=== PATIENT | female | born 1985 | race African-American/Black ===

== ENCOUNTER 2019-03-31 22:34 | Emergency (ER) | payer MEDICAID ==
[~2019-03-31] VITALS: Ht 160 cm; Wt 103.2 kg
--- NOTE | 2019-03-31 23:04 | PHYS DOC ---
Adult General Chief Complaint Chief Complaint: ABDOMINAL PAIN HPI HPI Patient is a 34-year-old female who presents with complaint of generalized abdominal pain that started approximately an hour prior to arrival to the em ergency room. Patient states that initially the pain was approximately a 10 out of 10 but states that currently is a 5 out of 10. She denies having had any nausea or vomiting but does admit some diarrhea today. She denies any fever. She denies any radiation of the pain. She is not aware of any exacerbating or alleviating factors.[] Review of Systems Review of Systems Constitutional: Denies fever or chills [] Respiratory: Denies cough or shortness of breath [] Cardiovascular: No additional information not addressed in HPI [] GI: Complains of abdominal pain without nausea or vomiting. Admits to diarrhea [] Integument: Denies rash or skin lesions [] Neurologic: Denies headache, focal weakness or sensory changes [] All other systems were reviewed and found to be within normal limits, except as documented in this note. Current Medications Current Medications Current Medications Medications (Trade) Dose Ordered Sig/Rey Start Time Stop Time Status Last Admin Dose Admin Ondansetron HCl (Zofran) 4 mg 1X ONCE 03/31/19 23:30 03/31/19 23:31 DC 03/31/19 23:40 4 MG Sodium Chloride 1,000 ml @ 1,000 mls/hr Q1H 03/31/19 23:30 04/01/19 00:29 03/31/19 23:39 1,000 MLS/HR Allergies Allergies Allergies Coded Allergies Type Severity Reaction Last Updated Verified No Known Drug Allergies 03/31/19 No Physical Exam Physical Exam Constitutional: Well developed, well nourished, no acute distress, non-toxic appearance. [] HENT: Normocephalic, atraumatic, bilateral external ears normal, oropharynx moist, no oral exudates, nose normal. [] Eyes: PERRLA, EOMI, conjunctiva normal, no discharge. [] Neck: Normal range of motion, no tenderness, supple, no stridor. [] Cardiovascular: Regular rate and rhythm[] Lungs & Thorax: Bilateral breath sounds clear to auscultation [] Abdomen: Bowel sounds normal, soft, no tenderness in all 4 quadrants. [] Skin: Warm, dry, no erythema, no rash. [] Extremities: No tenderness, no cyanosis, no clubbing, ROM intact. [] Neurologic: Alert and oriented X 3, no focal deficits noted. [] Current Patient Data Vital Signs Vital Signs Date Time Temp Pulse Resp B/P (MAP) Pulse Ox O2 Delivery O2 Flow Rate FiO2 03/31/19 23:50 72 20 138/81 (100) 96 03/31/19 23:20 Room Air 03/31/19 22:45 97.9 97.9 Lab Values Laboratory Tests Test 03/31/19 22:59 03/31/19 23:05 Urine Collection Type Unknown Urine Color Yellow Urine Clarity Clear Urine pH 7.0 Urine Specific [place] 1.010 Urine Protein Negative mg/dL (NEG-TRACE) Urine Glucose (UA) Negative mg/dL (NEG) Urine Ketones (Stick) Negative mg/dL (NEG) Urine Blood Negative (NEG) Urine Nitrite Negative (NEG) Urine Bilirubin Negative (NEG) Urine Urobilinogen Dipstick 0.2 mg/dL (0.2 mg/dL) Urine Leukocyte Esterase Negative (NEG) Urine RBC Occ /HPF (0-2) Urine WBC Occ /HPF (0-4) Urine Squamous Epithelial Cells Few /LPF Urine Bacteria 0 /HPF (0-FEW) White Blood Count 3.8 x10^3/uL (4.0-11.0) L Red Blood Count 4.68 x10^6/uL (3.50-5.40) Hemoglobin 13.5 g/dL (12.0-15.5) Hematocrit 39.8 % (36.0-47.0) Mean Corpuscular Volume 85 fL (79-100) Mean Corpuscular Hemoglobin 29 pg (25-35) Mean Corpuscular Hemoglobin Concent 34 g/dL (31-37) Red Cell Distribution Width 14.7 % (11.5-14.5) H Platelet Count 197 x10^3/uL (140-400) Neutrophils (%) (Auto) 42 % (31-73) Lymphocytes (%) (Auto) 46 % (24-48) Monocytes (%) (Auto) 7 % (0-9) Eosinophils (%) (Auto) 5 % (0-3) H Basophils (%) (Auto) 1 % (0-3) Neutrophils # (Auto) 1.6 x10^3/uL (1.8-7.7) L Lymphocytes # (Auto) 1.8 x10^3/uL (1.0-4.8) Monocytes # (Auto) 0.3 x10^3/uL (0.0-1.1) Eosinophils # (Auto) 0.2 x10^3/uL (0.0-0.7) Basophils # (Auto) 0.0 x10^3/uL (0.0-0.2) Sodium Level 144 mmol/L (136-145) Potassium Level 3.3 mmol/L (3.5-5.1) L Chloride Level 106 mmol/L (98-107) Carbon Dioxide Level 27 mmol/L (21-32) Anion Gap 11 (6-14) Blood Urea Nitrogen 5 mg/dL (7-20) L Creatinine 1.0 mg/dL (0.6-1.0) Estimated GFR (Cockcroft-Gault) 63.1 BUN/Creatinine Ratio 5 (6-20) L Glucose Level 100 mg/dL (70-99) H Calcium Level 9.1 mg/dL (8.5-10.1) Total Bilirubin 0.5 mg/dL (0.2-1.0) Aspartate Amino Transferase (AST) 30 U/L (15-37) Alanine Aminotransferase (ALT) 47 U/L (14-59) Alkaline Phosphatase 45 U/L (46-116) L Total Protein 7.0 g/dL (6.4-8.2) Albumin 3.7 g/dL (3.4-5.0) Albumin/Globulin Ratio 1.1 (1.0-1.7) Lipase 121 U/L (73-393) Laboratory Tests 03/31/19 23:05 Laboratory Tests 03/31/19 23:05 EKG EKG [] Radiology/Procedures Radiology/Procedures [] Impressions: PROCEDURE: ACUTE ABDOMEN SERIES Three-view acute abdominal series. HISTORY: Abdominal pain 3 views were taken for an acute abdominal series. Lungs are clear. Heart is normal in size. There is no effusion. There is no free air on the upright abdomen. There are no abnormal air-fluid levels. There is mild stool in the right colon and rectum. There is no small bowel obstruction. There are no abnormal calcifications. IMPRESSION: 1. No acute chest disease. 2. Mild stool noted in the colon. 3. No bowel obstruction or other acute finding. Electronically signed by: Berhane Sidhu MD (03/31/2019 11:59 PM) [facility] Course & Med Decision Making Course & Med Decision Making Pertinent Labs and Imaging studies reviewed. (See chart for details) [] Dragon Disclaimer Dragon Disclaimer This electronic medical record was generated, in whole or in part, using a voice recognition dictation system. Departure Departure Impression: Primary Impression: Abdominal pain Disposition: HOME, SELF-CARE Condition: STABLE Patient Instructions: Abdominal Pain Scripts Ondansetron (ONDANSETRON ODT) 4 Mg Tab.rapdis 1 TAB PO PRN Q6-8HRS PRN for NAUSEA, #15 TAB Prov: APARNA VINCENT Jr. DO 04/01/19 Ranitidine Hcl (ZANTAC) 150 Mg Tablet 150 MG PO BID, #30 TAB Prov: APARNA VINCENT Jr. DO 04/01/19 Problem Qualifiers Primary Impression: Abdominal pain Abdominal location: generalized Qualified Codes: R10.84 - Generalized abdominal pain APARNA VINCENT Jr. DO Mar 31, 2019 23:04
[2019-03-31 23:06] LABS: BILIRUBIN,URINE NEGATIVE (NEG); CLARITY,URINE CLEAR; COLOR,URINE YELLOW; NITRITE,URINE NEGATIVE (NEG); PROTEIN,URINE NEGATIVE (NEG-TRACE); UROBILINOGEN,URINE 0.2 mg/dL (0.2 mg/dL)
[2019-03-31 23:10] LABS: BACTERIA,URINE 0 /HPF (0-FEW); RBC,URINE OCC /HPF (0-2); SQUAMOUS EPITHELIAL CELL,UR FEW /LPF; WBC,URINE OCC /HPF (0-4)
[2019-03-31 23:15] LABS: BASO % 1 % (0-3); EOS # 0.2 x10^3/uL (0.0-0.7); EOS % 5 % (0-3); HEMATOCRIT 39.8 % (36.0-47.0); HEMOGLOBIN 13.5 g/dL (12.0-15.5); LYMPH # 1.8 x10^3/uL (1.0-4.8); LYMPH % 46 % (24-48); MEAN CORPUSCULAR HEMOGLOBIN 29 pg (25-35); MEAN CORPUSCULAR HGB CONC 34 g/dL (31-37); MEAN CORPUSCULAR VOLUME 85 fL (79-100); MONO # 0.3 x10^3/uL (0.0-1.1); MONO % 7 % (0-9); NEUT # 1.6 x10^3/uL (1.8-7.7); NEUT % 42 % (31-73); PLATELET COUNT 197 x10^3/uL (140-400); RED BLOOD COUNT 4.68 x10^6/uL (3.50-5.40); RED CELL DISTRIBUTION WIDTH 14.7 % (11.5-14.5); WHITE BLOOD COUNT 3.8 x10^3/uL (4.0-11.0)
[2019-03-31 23:23] LABS: CALCIUM 9.1 mg/dL (8.5-10.1); GFR 63.1; POTASSIUM 3.3 mmol/L (3.5-5.1)
[2019-03-31 23:28] LABS: ALBUMIN 3.7 g/dL (3.4-5.0); ALBUMIN/GLOBULIN RATIO 1.1 (1.0-1.7); TOTAL BILIRUBIN 0.5 mg/dL (0.2-1.0)
[2019-03-31] MEDS: IV NORMAL SALINE 1000ML BAG 1,000 ML IV SCH (23:39)
[2019-03-31] MEDS: ONDANSETRON PF 4 MG/2 ML VIAL. IV ONE (23:40)
--- NOTE | 2019-04-01 00:02 | RAD ---
Three-view acute abdominal series. HISTORY: Abdominal pain 3 views were taken for an acute abdominal series. Lungs are clear. Heart is normal in size. There is no effusion. There is no free air on the upright abdomen. There are no abnormal air-fluid levels. There is mild stool in the right colon and rectum. There is no small bowel obstruction. There are no abnormal calcifications. IMPRESSION: 1. No acute chest disease. 2. Mild stool noted in the colon. 3. No bowel obstruction or other acute finding. Electronically signed by: Berhane Sidhu MD (03/31/2019 11:59 PM) [facility]
[2019-04-01] MEDS ORDERED: RANI-376 PO (00:28)
[2019-04-01] MEDS ORDERED: ONDA4TAB12 PO (00:28)
[2019-04-01 00:50] VITALS: BP 152/76
== END 2019-04-01 01:00 | disposition home or self-care (01) ==
LOC: ER 22:34
DX: R10.84 Generalized abdominal pain (principal); R19.7 Diarrhea, unspecified
CPT/HCPCS: 36415; 74022; 80053; 81001; 83690; 85025; 96361; 96374; 99285; J2405; J7030